=== PATIENT | male | born 1960 | race Caucasian/White ===

== ENCOUNTER 2025-02-16 15:31 | Emergency (ER) | payer BC ==
[2025-02-16] MEDS ORDERED: Sodium Chloride 0.9% 10 ML Syringe FLUSH PRN (15:54)
[2025-02-16] MEDS: Aspirin 81 MG Tab.Chew PO ONE (16:00)
[2025-02-16] MEDS: Sodium Chloride 0.9% 1,000 ML IV ONE (16:03)
[2025-02-16 16:10] LABS: HEMATOCRIT 43.5 % (40.0-54.0); HEMOGLOBIN 14.7 g/dL (13.0-18.0); MEAN CORPUSCULAR HEMOGLOBIN 30.5 pg (27.0-32.0); MEAN CORPUSCULAR HGB CONC 33.8 g/dL (31.0-35.0); MEAN PLATELET VOLUME 10.2 fL (6.0-10.0); RED BLOOD CELL COUNT 4.82 M/uL (4.50-6.50); RED CELL DISTRIBUTION WIDTH 13.7 % (11.0-16.0); WHITE BLOOD CELL COUNT,WBC 6.2 K/uL (4.0-11.0)
[2025-02-16 16:25] LABS: MAGNESIUM 2.2 mg/dL (1.8-2.4); PHOSPHORUS 2.3 mg/dL (2.5-4.9)
[2025-02-16 16:28] LABS: A/G RATIO 1.5 (0.8-2.0); ANION GAP 11.5 mmol/L (5.0-15.0); BILIRUBIN TOTAL 0.6 mg/dL (0.0-1.0); BUN/CREATININE RATIO 14.6 (6-25); CALCIUM 9.2 mg/dL (8.5-10.1); CARBON DIOXIDE,CO2 30.9 mmol/L (21.0-32.0); CREATININE 1.03 mg/dL (0.70-1.30); EST CRCL DRUG DOSING (CG) 73.41 mL/min; POTASSIUM,K 4.4 mmol/L (3.5-5.1); PROTEIN TOTAL,TP 6.7 g/dL (6.4-8.2)
[2025-02-16] MEDS: Potassium Phosphates 30 MMOLE in Sodium Chloride 0.9% 500 ML IV SCH (16:57)
[2025-02-16] MEDS: Insulin Regular, Human 100 Units/ML 10 ML Vial IV ONE (18:42)
== END 2025-02-16 21:46 | disposition home or self-care (01) ==
LOC: LB.ED 15:31
DX: E83.39 Other disorders of phosphorus metabolism (principal); R00.2 Palpitations; Z79.82 Long term (current) use of aspirin; Z79.899 Other long term (current) drug therapy; Z87.891 Personal history of nicotine dependence
CPT/HCPCS: 36415; 80053; 83735; 84100; 84484; 85027; 85379; 93005; 93010; 96361; 96365; 96366; 99284; 99285; A9270; J7030; J7040; J3490

== ENCOUNTER 2025-02-17 16:53 | Emergency (ER) | payer BC ==
[2025-02-17] MEDS: Lidocaine 1% 20 ML MDV INJECT PRN (17:17)
[2025-02-17] MEDS ORDERED: Cephalexin 500 MG Cap ONE (17:30)
[2025-02-17] MEDS: Bacitracin Oint 1 GM U/D Packet TOP ONE (17:40)
== END 2025-02-17 17:55 | disposition home or self-care (01) ==
LOC: LB.ED 16:53
DX: S91.312A Laceration without foreign body, left foot, initial encounter (principal); W29.3XXA Contact with powered garden and outdoor hand tools and machinery, initial encounter; Y93.89 Activity, other specified; Z79.82 Long term (current) use of aspirin; Z79.899 Other long term (current) drug therapy
CPT/HCPCS: 12002; 99282; A9270; 99283